=== PATIENT | female | born 1985 | race Caucasian/White ===

== ENCOUNTER 2024-07-15 19:04 | Emergency (ER) | payer BC ==
--- OUTSIDE RECORDS SUMMARY | 2024-07-15 19:09 | XMS REPORT | Continuity of Care Document ---
Author Name Unknown Address [address] [facility] [address] [place] [address] [facility] Address [address] [facility] [address] [place] [address] Care Team Providers Care Technician Automated Equipment Name Role Phone Lasha Lara Primary Care Physician [phone] Avtar Benavides Attending Clinician Unavailable YONG CARDENAS Attending Clinician Unavailable Yong York Attending Clinician [phone] Unknown, Attending Attending Clinician Unavailab le Doctor Unassigned, [place] Attending Clinician U navailable Payers Payer Name Policy Type Policy Number Effective Date Expirati on Date Source [facility] 6 [id number] 2024 00:00:00 [id number] 2018 00:00:00 [employer] 53 [id number] 2019 00:00:00 [facility] [id number] 2010 00:00:00 [employer] O [id number] 2019 00:00:00 Problems Condition Name Condition Details Condition Category Status Onset Date Resolution Date Last Treatment Date Treating Clinician Comments Source Type II or unspecifie d type diabetes mellitus with unspecifie d complicati on, uncontroll ed Type II or unspecifie d type diabetes mellitus with unspecifie d complicati on, uncontroll ed Disease Active 03-20 00:00: 00 [facility] [id number] BEREKET (generaliz ed anxiety disorder) Problem [facility] [id number] History of attention deficit hyperactiv ity disorder (ADHD) Problem [facility] Lumbar disc prolapse with radiculopa thy Lumbar disc herniation with radiculopa thy Problem [facility] [id number] Attention deficit hyperactiv ity disorder (ADHD), combined type Problem [facility] [id number] Anal lesion Problem [facility] [id number] Hypertensi on, unspecifie d type Problem [facility] [id number] Noncomplia nce with dietary restrictio n Problem [facility] [id number] Type 2 diabetes mellitus with hyperglyce piotr Problem [facility] Hyperlipid aemia Hyperlipem ia Problem [facility] [id number] rn long term care current use of insulin Problem [facility] [id number] History of stroke Problem [facility] [id number] History of hypothyroi dism Problem [facility] Essential hypertensi on Benign essential HTN Problem [facility] Diabetes mellitus without complicati on Diabetes DMII without complicati ons Problem [facility] Cerebral infarction Acute CVA (cerebrova scular accident) Problem [facility] [id number] Body mass index [BMI] 37.0-37.9, adult Problem [facility] Gastroesop hageal reflux disease GERD (gastroeso phageal reflux disease) Problem [facility] [id number] Morbid (severe) obesity due to excess calories Problem [facility] Depression Depression Problem [facility] [id number] Anemia, unspecifie d type Problem [facility] [id number] Abnormal laboratory test result Problem [facility] [id number] Thrombocyt osis Problem [facility] Diabetic retinopath y associated with type 2 diabetes mellitus Diabetic retinopath y without macular edema associated with type 2 diabetes mellitus, unspecifie d laterality , unspecifie d retinopath y severity Problem [facility] [id number] Non-season al allergic rhinitis, unspecifie d trigger Problem [facility] Allergies, Adverse Reactions, Alerts Allergy Name Allergy Type Status Severity Reaction(s) Onset Date Inactive Date Treating Clinician Comments Source NO KNOWN ALLERGIE S Drug Class Active [facility] Social History Social Habit Start Date Stop Date Quantity Comments Source History of Tobacco Use [facility] Exposure to SARS-CoV-2 (event) 2022-08-19 00:00:00 2022-08-29 09:04:00 Not sure [facility] Alcohol intake 2022-08-29 00:00:00 2022-08-29 00:00:00 [facility] Sex Assigned At 1985 00:00:00 1985 00:00:00 [facility] Smoking Status Start Date Stop Date Source Never Smoker [facility] Tobacco smoking consumption unknown [facility] Medications Ordered Medication Name Filled Medication Name Start Date Stop Date Current Medication? Ordering Clinician Indication Dosage Frequency Signature (SIG) Comments Components Source Pregabalin 75 MG Pregabalin 75 MG 2023-07 2-18 00:00: 00 No 1{capsu le} BID Pregabalin 75 MG Zoloft 50 MG Zoloft 50 MG 2023-07 1-19 00:00: 00 No 1{table t} QD Zoloft 50 MG Insulin Lispro (1 Unit Dial) 100 UNIT/ML Insulin Lispro (1 Unit Dial) 100 UNIT/ML 9-13 00:00: 00 No TID Insulin Lispro (1 Unit Dial) 100 UNIT/ML glipiZIDE ER 10 MG glipiZIDE ER 10 MG 7-30 00:00: 00 No 1{table t_with_ food} BID glipiZIDE ER 10 MG Vyvanse 40 MG Vyvanse 40 MG 2023- 6-05 00:00: 00 No 1{capsu le_in_t he_morn ing} QD Vyvanse 40 MG Fexofenadin e HCl 180 MG Fexofenadin e HCl 180 MG 2022-07 2- 00:00: 00 No QD Fexofenadi ne HCl 180 MG Cyclobenzap rine HCl 10 MG Cyclobenzap rine HCl 10 MG 6- 00:00: 00 No 1{table t_at_be dtime_a s_neede d} Cyclobenza elizabet HCl 10 MG Fluconazole 150 MG Fluconazole 150 MG - 00:00: 00 No 2{table ts} Fluconazol e 150 MG hydrOXYzine Pamoate 25 MG hydrOXYzine Pamoate 25 MG 2- 00:00: 00 No 1{capsu le_at_b edtime_ as_need ed} QD hydrOXYzin e Pamoate 25 MG ranitidine 150 mg tablet 08-29 09:16: 22 Yes 150mg Take 150 mg by mouth 2 (two) times daily. [facility] Cetirizine 10 mg capsule 08-29 09:16: 22 Yes Take by mouth. [facility] dicyclomine 10 mg capsule 08-29 09:16: 22 Yes 10mg Take 10 mg by mouth. [facility] doxycycline (PERIOSTAT) 20 mg tablet 08-29 09:16: 22 Yes 20mg Take 20 mg by mouth 2 (two) times daily. [facility] METHYL-B12/ L-MEFOLATE/ B6 PHOS (METANX ORAL) 08-29 09:16: 22 Yes Take by mouth. [facility] pramipexole (MIRAPEX) 0.125 mg tablet 08-29 09:16: 22 Yes .125mg Take 0.125 mg by mouth 3 (three) times daily. [facility] niacin 500 mg tablet 08-29 09:16: 22 Yes 500mg Take 500 mg by mouth daily with breakfast. [facility] amoxicillin 875 mg tablet 08-29 00:00: 00 09-09 05:59 :00 No [id number] 875mg Take 1 tablet by mouth in the morning and 1 tablet in the evening. Do all this for 10 days. [facility] MOUNJARO 2.5 mg/0.5 mL PnIj 2021-07 00:00: 00 Yes INJECT 2.5 MG UNDER THE SKIN ONCE WEEKLY. [facility] glipiZIDE XL 10 mg 24 hr tablet 2021-07 00:00: 00 Yes [facility] TRULICITY 1.5 mg/0.5 mL PnIj 2021-07 00:00: 00 Yes [facility] VYVANSE 40 mg capsule 2021-07 00:00: 00 Yes [facility] Pen [place] 31G X 5 MM [place] 31G X 5 MM 07-30 00:00: 00 No [place] 31G X 5 MM doxycycline (PERIOSTAT) 20 mg tablet 2017-07 10:12: 41 Yes 20mg Take 20 mg by mouth 2 (two) times daily. [facility] pramipexole (MIRAPEX) 0.125 mg tablet 2017-07 10:12: 41 Yes .125mg Take 0.125 mg by mouth 3 (three) times daily. [facility] Insulin Glargine (LANTUS SOLOSTAR) 100 unit/mL (3 mL) InPn 2011-07 00:00: 00 Yes [id number] 60U inject 60 Units under the skin daily. [facility] insulin aspart (NOVOLOG FLEXPEN) 100 unit/mL injection 2011-07 00:00: 00 Yes [id number] 20U inject 20 Units under the skin 3 (three) times daily before meals. [facility] niacin 500 mg tablet 03-20 14:56: 31 Yes 500mg Take 500 mg by mouth daily with breakfast. [facility] ACIDOPHILUS /PECTIN, CITRUS (ACIDOPHILU S PROBIOTIC ORAL) 03-20 14:56: 31 Yes Take by mouth. [facility] ascorbic acid (VITAMIN C) 500 mg tablet 03-20 14:56: 31 Yes 500mg Take 500 mg by mouth. [facility] ranitidine (ZANTAC) 150 mg tablet 03-20 14:56: 31 Yes 150mg Take 150 mg by mouth 2 (two) times daily. [facility] Cetirizine (ZYRTEC) 10 mg Cap 03-20 14:56: 31 Yes Take by mouth. [facility] METHYL-B12/ L-MEFOLATE/ B6 PHOS (METANX ORAL) 03-20 14:56: 30 Yes Take by mouth. [facility] enalapril (VASOTEC) 20 mg tablet 03-10 00:00: 00 Yes 20mg 20 mg daily. [facility] warfarin (COUMADIN) 7.5 mg tablet 02-28 00:00: 00 Yes [facility] gabapentin (NEURONTIN) 300 mg capsule 02-26 00:00: 00 Yes [facility] levothyroxi ne (SYNTHROID) 75 mcg tablet 02-15 00:00: 00 Yes 75ug 75 mcg BID. [facility] metFORMIN (GLUCOPHAGE ) 1,000 mg tablet 02-15 00:00: 00 Yes [facility] Cranberry 250 MG Cranberry 250 MG No Cranberry 250 MG Pravastatin Sodium 40 MG Pravastatin Sodium 40 MG No 1{table t} QD Pravastati n Sodium 40 MG Toujeo Max SoloStar 300 unit/mL Toujeo Max SoloStar 300 unit/mL No QD Toujeo Max SoloStar 300 unit/mL Omeprazole 40 MG Omeprazole 40 MG No 1{capsu le} QD Omeprazole 40 MG Dexilant 60 MG Dexilant 60 MG No 1{capsu le} QD Dexilant 60 MG Dicyclomine HCl 20 MG Dicyclomine HCl 20 MG No 1{table t} Dicyclomin e HCl 20 MG FreeStyle Mica 14 Day Sensor - FreeStyle Mica 14 Day Sensor - No FreeStyle Mica 14 Day Sensor - Aspirin 81 MG Aspirin 81 MG No 1{table t} QD Aspirin 81 MG Cetirizine HCl 10 MG Cetirizine HCl 10 MG No 2{table ts} QD Cetirizine HCl 10 MG Lisinopril 20 MG Lisinopril 20 MG No 1{table t} QD Lisinopril 20 MG Addyi 100 MG Addyi 100 MG No 1{table t_at_be dtime} QD Addyi 100 MG busPIRone HCl 15 MG busPIRone HCl 15 MG No BID busPIRone HCl 15 MG Mounjaro 15 MG/0.5ML Mounjaro 15 MG/0.5ML No Mounjaro 15 MG/0.5ML Immunizations Ordered Immunization Name Filled Immunization Name Date Status Comments Source Flucelvax - multidose vial Flucelvax - multidose vial 2021-08-27 14:40:00 Completed [facility] Boostrix (Tdap) Boostrix (Tdap) 2021-08-27 14:40:00 Completed [facility] Flucelvax - multidose vial Flucelvax - multidose vial 2021-08-27 14:40:00 Completed [facility] Boostrix (Tdap) Boostrix (Tdap) 2021-08-27 14:40:00 Completed [facility] Flucelvax - multidose vial Flucelvax - multidose vial 2021-08-27 14:40:00 Completed [facility] Boostrix (Tdap) Boostrix (Tdap) 2021-08-27 14:40:00 Completed [facility] Flucelvax - multidose vial Flucelvax - multidose vial 2021-08-27 14:40:00 Completed [facility] Boostrix (Tdap) Boostrix (Tdap) 2021-08-27 14:40:00 Completed [facility] Flucelvax - multidose vial Flucelvax - multidose vial 2021-08-27 14:40:00 Completed [facility] Boostrix (Tdap) Boostrix (Tdap) 2021-08-27 14:40:00 Completed [facility] Flucelvax - multidose vial Flucelvax - multidose vial 2021-08-27 14:40:00 Completed [facility] Boostrix (Tdap) Boostrix (Tdap) 2021-08-27 14:40:00 Completed [facility] Flucelvax - multidose vial Flucelvax - multidose vial 2021-08-27 14:40:00 Completed [facility] Boostrix (Tdap) Boostrix (Tdap) 2021-08-27 14:40:00 Completed [facility] Flucelvax - multidose vial Flucelvax - multidose vial 2021-08-27 14:40:00 Completed [facility] Boostrix (Tdap) Boostrix (Tdap) 2021-08-27 14:40:00 Completed [facility] Flucelvax - multidose vial Flucelvax - multidose vial 2021-08-27 14:40:00 Completed [facility] Boostrix (Tdap) Boostrix (Tdap) 2021-08-27 14:40:00 Completed [facility] SARS-COV-2 COVID-19 PFIZER VACCINE 2020-10-28 00:00:00 Completed [facility] SARS-COV-2 COVID-19 PFIZER VACCINE 2020-10-28 00:00:00 Completed [facility] SARS-COV-2 COVID-19 PFIZER VACCINE 2020-10-28 00:00:00 Completed [facility] SARS-COV-2 COVID-19 PFIZER VACCINE 2020-10-07 00:00:00 Completed [facility] SARS-COV-2 COVID-19 PFIZER VACCINE 2020-10-07 00:00:00 Completed [facility] SARS-COV-2 COVID-19 PFIZER VACCINE 2020-10-07 00:00:00 Completed [facility] Flucelvax - multidose vial Flucelvax - multidose vial Unknown Completed [facility] Boostrix (Tdap) Boostrix (Tdap) Unknown Completed [facility] Flucelvax - multidose vial Flucelvax - multidose vial Unknown Completed [facility] Boostrix (Tdap) Boostrix (Tdap) Unknown Completed [facility] Flucelvax - multidose vial Flucelvax - multidose vial Unknown Completed [facility] Boostrix (Tdap) Boostrix (Tdap) Unknown Completed [facility] Flucelvax - multidose vial Flucelvax - multidose vial Unknown Completed [facility] Boostrix (Tdap) Boostrix (Tdap) Unknown Completed [facility] Flucelvax - multidose vial Flucelvax - multidose vial Unknown Completed [facility] Boostrix (Tdap) Boostrix (Tdap) Unknown Completed [facility] Flucelvax - multidose vial Flucelvax - multidose vial Unknown Completed [facility] Boostrix (Tdap) Boostrix (Tdap) Unknown Completed [facility] Flucelvax - multidose vial Flucelvax - multidose vial Unknown Completed [facility] Boostrix (Tdap) Boostrix (Tdap) Unknown Completed [facility] Boostrix (Tdap) Boostrix (Tdap) Unknown Completed [facility] Flucelvax - multidose vial Flucelvax - multidose vial Unknown Completed [facility] Flucelvax - multidose vial Flucelvax - multidose vial Unknown Completed [facility] Boostrix (Tdap) Boostrix (Tdap) Unknown Completed [facility] Flucelvax - multidose vial Flucelvax - multidose vial Unknown Completed [facility] Boostrix (Tdap) Boostrix (Tdap) Unknown Completed [facility] Flucelvax - multidose vial Flucelvax - multidose vial Unknown Completed [facility] Boostrix (Tdap) Boostrix (Tdap) Unknown Completed [facility] Flucelvax - multidose vial Flucelvax - multidose vial Unknown Completed [facility] Boostrix (Tdap) Boostrix (Tdap) Unknown Completed [facility] Flucelvax - multidose vial Flucelvax - multidose vial Unknown Completed [facility] Boostrix (Tdap) Boostrix (Tdap) Unknown Completed [facility] Flucelvax - multidose vial Flucelvax - multidose vial Unknown Completed [facility] Boostrix (Tdap) Boostrix (Tdap) Unknown Completed [facility] Flucelvax - multidose vial Flucelvax - multidose vial Unknown Completed [facility] Boostrix (Tdap) Boostrix (Tdap) Unknown Completed [facility] Flucelvax - multidose vial Flucelvax - multidose vial Unknown Completed [facility] Boostrix (Tdap) Boostrix (Tdap) Unknown Completed [facility] Flucelvax (ccIIV4) - MDV - 0.5mL Flucelvax (ccIIV4) - MDV - 0.5mL Unknown Completed [facility] Boostrix (Tdap) Boostrix (Tdap) Unknown Completed [facility] Flucelvax (ccIIV4) - MDV - 0.5mL Flucelvax (ccIIV4) - MDV - 0.5mL Unknown Completed [facility] Boostrix (Tdap) Boostrix (Tdap) Unknown Completed [facility] Flucelvax (ccIIV4) - MDV - 0.5mL Flucelvax (ccIIV4) - MDV - 0.5mL Unknown Completed [facility] Boostrix (Tdap) Boostrix (Tdap) Unknown Completed [facility] Flucelvax (ccIIV4) - MDV - 0.5mL Flucelvax (ccIIV4) - MDV - 0.5mL Unknown Completed [facility] Boostrix (Tdap) Boostrix (Tdap) Unknown Completed [facility] Flucelvax (ccIIV4) - MDV - 0.5mL Flucelvax (ccIIV4) - MDV - 0.5mL Unknown Completed [facility] Boostrix (Tdap) Boostrix (Tdap) Unknown Completed [facility] Flucelvax (ccIIV4) - MDV - 0.5mL Flucelvax (ccIIV4) - MDV - 0.5mL Unknown Completed [facility] Boostrix (Tdap) Boostrix (Tdap) Unknown Completed [facility] Flucelvax (ccIIV4) - MDV - 0.5mL Flucelvax (ccIIV4) - MDV - 0.5mL Unknown Completed [facility] Boostrix (Tdap) Boostrix (Tdap) Unknown Completed [facility] Flucelvax (ccIIV4) - MDV - 0.5mL Flucelvax (ccIIV4) - MDV - 0.5mL Unknown Completed [facility] Boostrix (Tdap) Boostrix (Tdap) Unknown Completed [facility] Flucelvax (ccIIV4) - MDV - 0.5mL Flucelvax (ccIIV4) - MDV - 0.5mL Unknown Completed [facility] Boostrix (Tdap) Boostrix (Tdap) Unknown Completed [facility] Flucelvax (ccIIV4) - MDV - 0.5mL Flucelvax (ccIIV4) - MDV - 0.5mL Unknown Completed [facility] Boostrix (Tdap) Boostrix (Tdap) Unknown Completed [facility] Flucelvax (ccIIV4) - MDV - 0.5mL Flucelvax (ccIIV4) - MDV - 0.5mL Unknown Completed [facility] Boostrix (Tdap) Boostrix (Tdap) Unknown Completed [facility] Flucelvax (ccIIV4) - MDV - 0.5mL Flucelvax (ccIIV4) - MDV - 0.5mL Unknown Completed [facility] Boostrix (Tdap) Boostrix (Tdap) Unknown Completed [facility] Flucelvax (ccIIV4) - MDV - 0.5mL Flucelvax (ccIIV4) - MDV - 0.5mL Unknown Completed [facility] Boostrix (Tdap) Boostrix (Tdap) Unknown Completed [facility] Flucelvax (ccIIV4) - MDV - 0.5mL Flucelvax (ccIIV4) - MDV - 0.5mL Unknown Completed [facility] Boostrix (Tdap) Boostrix (Tdap) Unknown Completed [facility] Flucelvax (ccIIV4) - MDV - 0.5mL Flucelvax (ccIIV4) - MDV - 0.5mL Unknown Completed [facility] Boostrix (Tdap) Boostrix (Tdap) Unknown Completed [facility] Flucelvax (ccIIV4) - MDV - 0.5mL Flucelvax (ccIIV4) - MDV - 0.5mL Unknown Completed [facility] Boostrix (Tdap) Boostrix (Tdap) Unknown Completed [facility] Flucelvax (ccIIV4) - MDV - 0.5mL Flucelvax (ccIIV4) - MDV - 0.5mL Unknown Completed [facility] Boostrix (Tdap) Boostrix (Tdap) Unknown Completed [facility] Flucelvax (ccIIV4) - MDV - 0.5mL Flucelvax (ccIIV4) - MDV - 0.5mL Unknown Completed [facility] Boostrix (Tdap) Boostrix (Tdap) Unknown Completed [facility] Flucelvax (ccIIV4) - MDV - 0.5mL Flucelvax (ccIIV4) - MDV - 0.5mL Unknown Completed [facility] Boostrix (Tdap) Boostrix (Tdap) Unknown Completed [facility] Flucelvax (ccIIV4) - MDV - 0.5mL Flucelvax (ccIIV4) - MDV - 0.5mL Unknown Completed [facility] Boostrix (Tdap) Boostrix (Tdap) Unknown Completed [facility] Flucelvax (ccIIV4) - MDV - 0.5mL Flucelvax (ccIIV4) - MDV - 0.5mL Unknown Completed [facility] Boostrix (Tdap) Boostrix (Tdap) Unknown Completed [facility] Flucelvax (ccIIV4) - MDV - 0.5mL Flucelvax (ccIIV4) - MDV - 0.5mL Unknown Completed [facility] Boostrix (Tdap) Boostrix (Tdap) Unknown Completed [facility] Flucelvax (ccIIV4) - MDV - 0.5mL Flucelvax (ccIIV4) - MDV - 0.5mL Unknown Completed [facility] Boostrix (Tdap) Boostrix (Tdap) Unknown Completed [facility] Flucelvax (ccIIV4) - MDV - 0.5mL Flucelvax (ccIIV4) - MDV - 0.5mL Unknown Completed [facility] Boostrix (Tdap) Boostrix (Tdap) Unknown Completed [facility] Flucelvax (ccIIV4) - MDV - 0.5mL Flucelvax (ccIIV4) - MDV - 0.5mL Unknown Completed [facility] Boostrix (Tdap) Boostrix (Tdap) Unknown Completed [facility] Flucelvax (ccIIV4) - MDV - 0.5mL Flucelvax (ccIIV4) - MDV - 0.5mL Unknown Completed [facility] Boostrix (Tdap) Boostrix (Tdap) Unknown Completed [facility] Flucelvax - multidose vial Flucelvax - multidose vial Unknown Completed [facility] Boostrix (Tdap) Boostrix (Tdap) Unknown Completed [facility] Flucelvax - multidose vial Flucelvax - multidose vial Unknown Completed [facility] Boostrix (Tdap) Boostrix (Tdap) Unknown Completed [facility] Flucelvax - multidose vial Flucelvax - multidose vial Unknown Completed [facility] Boostrix (Tdap) Boostrix (Tdap) Unknown Completed [facility] Flucelvax - multidose vial Flucelvax - multidose vial Unknown Completed [facility] Boostrix (Tdap) Boostrix (Tdap) Unknown Completed [facility] Vital Signs Vital Name Observation Time Observation Value Comments S ource height 2024-07-07 08:00:00 66 [in_i] Commo n [facility] weight 2024-07-07 08:00:00 220 [lb_av] Comm on [facility] bmi 2024-07-07 08:00:00 35.51 kg/m2 Comm on [facility] height 2024-03-25 08:00:00 66 [in_i] Commo n [facility] weight 2024-03-25 08:00:00 220 [lb_av] Comm on [facility] bmi 2024-03-25 08:00:00 35.51 kg/m2 Comm on [facility] blood pressure systolic 2024-03-25 08:00:00 125 mm[Hg[facility] diastolic 2024-03-25 08:00:00 76 mm[Hg] [facility] height 2024-03-25 08:00:00 66 [in_i] Commo n [facility] weight 2024-03-25 08:00:00 220 [lb_av] Comm on [facility] bmi 2024-03-25 08:00:00 35.51 kg/m2 Comm on [facility] blood pressure systolic 2024-03-25 08:00:00 125 mm[Hg] Common [facility] blood pressure diastolic 2024-03-25 08:00:00 76 mm[Hg] [facility] height 2023-12-24 08:00:00 66 [in_i] Commo n [facility] weight 2023-12-24 08:00:00 220 [lb_av] Comm on [facility] temperature 2023-12-24 08:00:00 97 [degF] Comm on [facility] bmi 2023-12-24 08:00:00 35.51 kg/m2 Comm on [facility] blood pressure systolic 2023-12-24 08:00:00 123 mm[Hg] Common [facility] blood pressure diastolic 2023-12-24 08:00:00 76 mm[Hg] [facility] height 2023-09-24 08:00:00 66 [in_i] Commo n [facility] weight 2023-09-24 08:00:00 220 [lb_av] Comm on [facility] temperature 2023-09-24 08:00:00 98 [degF] Comm on [facility] bmi 2023-09-24 08:00:00 35.51 kg/m2 Comm on [facility] blood pressure systolic 2023-09-24 08:00:00 124 mm[Hg] [facility] blood pressure diastolic 2023-09-24 08:00:00 74 mm[Hg] [facility] height 2023-06-26 10:20:00 66 [in_i] Commo n [facility] weight 2023-06-26 10:20:00 222.6 [lb_av] Co mmon [facility] temperature 2023-06-26 10:20:00 97.3 [degF] Com mon [facility] bmi 2023-06-26 10:20:00 35.92 kg/m2 Comm on [facility] oximetry 2023-06-26 10:20:00 99 % Commo n [facility] blood pressure systolic 2023-06-26 10:20:00 132 mm[Hg] [facility] blood pressure diastolic 2023-06-26 10:20:00 80 mm[Hg] [facility] height 2023-03-26 11:40:00 66 [in_i] Commo n [facility] weight 2023-03-26 11:40:00 230 [lb_av] Comm on [facility] bmi 2023-03-26 11:40:00 37.12 kg/m2 Comm on [facility] blood pressure systolic 2023-03-26 11:40:00 131 mm[Hg] [facility] blood pressure diastolic 2023-03-26 11:40:00 78 mm[Hg] [facility] height 2022-12-24 13:30:00 66 [in_i] Commo n [facility] weight 2022-12-24 13:30:00 230 [lb_av] Comm on [facility] bmi 2022-12-24 13:30:00 37.12 kg/m2 Comm on [facility] blood pressure systolic 2022-12-24 13:30:00 132 mm[Hg] Common [facility] blood pressure diastolic 2022-12-24 13:30:00 75 mm[Hg] [facility] height 2022-11-08 16:30:00 66 [in_i] Commo n [facility] weight 2022-11-08 16:30:00 239.0 [lb_av] Co mmon [facility] temperature 2022-11-08 16:30:00 98.1 [degF] Com mon [facility] bmi 2022-11-08 16:30:00 38.57 kg/m2 Comm on [facility] oximetry 2022-11-08 16:30:00 100 % Commo n [facility] respiratory rate 2022-11-08 16:30:00 18 /min Common [facility] blood pressure systolic 2022-11-08 16:30:00 139 mm[Hg] [facility] blood pressure diastolic 2022-11-08 16:30:00 85 mm[Hg] Common [facility] [place] height 2022-10-29 16:20:00 66 [in_i] Commo n [facility] weight 2022-10-29 16:20:00 235 [lb_av] Comm on [facility] temperature 2022-10-29 16:20:00 98 [degF] Comm on [facility] bmi 2022-10-29 16:20:00 37.93 kg/m2 Comm on [facility] blood pressure systolic 2022-10-29 16:20:00 131 mm[Hg] [facility] blood pressure diastolic 2022-10-29 16:20:00 70 mm[Hg] [facility] height 2022-09-02 15:30:00 66 [in_i] Commo n [facility] weight 2022-09-02 15:30:00 233.0 [lb_av] Co mmon [facility] temperature 2022-09-02 15:30:00 97.2 [degF] Com mon [facility] bmi 2022-09-02 15:30:00 37.6 kg/m2 Commo n [facility] oximetry 2022-09-02 15:30:00 99 % Comm n [facility] respiratory rate 2022-09-02 15:30:00 18 /min [facility] blood pressure systolic 2022-09-02 15:30:00 134 mm[Hg] [facility] blood pressure diastolic 2022-09-02 15:30:00 72 mm[Hg] [facility] Systolic blood pressure 2022-08-29 15:16:00 132 mm[Hg] [facility] Diastolic blood pressure 2022-08-29 15:16:00 83 mm[Hg] [facility] Heart rate 2022-08-29 15:16:00 73 /min [facility] Body temperature 2022-08-29 15:16:00 36.72 Flor [facility] Respiratory rate 2022-08-29 15:16:00 18 /min [facility] Body weight 2022-08-29 15:16:00 107.049 kg [facility] BMI 2022-08-29 15:16:00 38.09 kg/m2 [facility] Oxygen saturation in Arterial blood by Pulse oximetry 2022-08-29 15:16:00 97 /min [facility] height 2022-06-04 08:00:00 66 [in_i] Commo n [facility] weight 2022-06-04 08:00:00 240 [lb_av] Comm on [facility] temperature 2022-06-04 08:00:00 98 [degF] Comm on [facility] bmi 2022-06-04 08:00:00 38.73 kg/m2 Comm on [facility] blood pressure systolic 2022-06-04 08:00:00 125 mm[Hg] Common [facility] blood pressure diastolic 2022-06-04 08:00:00 72 mm[Hg] [facility] height 2022-03-12 07:50:00 66 [in_i] Commo n [facility] weight 2022-03-12 07:50:00 240 [lb_av] Comm on [facility] temperature 2022-03-12 07:50:00 97.4 [degF] Com mon [facility] bmi 2022-03-12 07:50:00 38.73 kg/m2 Comm on [facility] blood pressure systolic 2022-03-12 07:50:00 120 mm[Hg] [facility] blood pressure diastolic 2022-03-12 07:50:00 76 mm[Hg] [facility] height 2022-01-01 09:20:00 66 [in_i] Commo n [facility] weight 2022-01-01 09:20:00 240 [lb_av] Comm on [facility] temperature 2022-01-01 09:20:00 98 [degF] Comm on [facility] bmi 2022-01-01 09:20:00 38.73 kg/m2 Comm on [facility] blood pressure systolic 2022-01-01 09:20:00 125 mm[Hg] Common [facility] blood pressure diastolic 2022-01-01 09:20:00 75 mm[Hg] [facility] height 2021-12-11 07:50:00 66 [in_i] Commo n [facility] weight 2021-12-11 07:50:00 240 [lb_av] Comm on [facility] temperature 2021-12-11 07:50:00 97.4 [degF] Com mon [facility] bmi 2021-12-11 07:50:00 38.73 kg/m2 Comm on [facility] blood pressure systolic 2021-12-11 07:50:00 128 mm[Hg] [facility] blood pressure diastolic 2021-12-11 07:50:00 76 mm[Hg] [facility] height 2021-11-09 07:50:00 66 [in_i] Commo n [facility] weight 2021-11-09 07:50:00 242 [lb_av] Comm on [facility] temperature 2021-11-09 07:50:00 98 [degF] Comm on [facility] bmi 2021-11-09 07:50:00 39.06 kg/m2 Comm on [facility] blood pressure systolic 2021-11-09 07:50:00 130 mm[Hg] [facility] blood pressure diastolic 2021-11-09 07:50:00 76 mm[Hg] [facility] height 2021-08-27 14:00:00 66 [in_i] Commo n [facility] weight 2021-08-27 14:00:00 240.7 [lb_av] Co mmon [facility] temperature 2021-08-27 14:00:00 98.1 [degF] Com mon [facility] bmi 2021-08-27 14:00:00 38.85 kg/m2 Comm on [facility] oximetry 2021-08-27 14:00:00 99 % Commo n [facility] respiratory rate 2021-08-27 14:00:00 18 /min Common [facility] blood pressure systolic 2021-08-27 14:00:00 132 mm[Hg] [facility] blood pressure diastolic 2021-08-27 14:00:00 74 mm[Hg] Common [facility] height 2021-07-03 10:40:00 66 [in_i] Commo n [facility] weight 2021-07-03 10:40:00 237 [lb_av] Comm on [facility] temperature 2021-07-03 10:40:00 98 [degF] Comm on [facility] bmi 2021-07-03 10:40:00 38.25 kg/m2 Comm on [facility] blood pressure systolic 2021-07-03 10:40:00 130 mm[Hg] [facility] blood pressure diastolic 2021-07-03 10:40:00 72 mm[Hg] Common [facility] height 2021-05-31 08:50:00 66 [in_i] Commo n [facility] weight 2021-05-31 08:50:00 238 [lb_av] Comm on [facility] temperature 2021-05-31 08:50:00 98 [degF] Comm on [facility] bmi 2021-05-31 08:50:00 38.41 kg/m2 Comm on [facility] blood pressure systolic 2021-05-31 08:50:00 131 mm[Hg] Common [facility] blood pressure diastolic 2021-05-31 08:50:00 70 mm[Hg] Common [facility] height 2021-05-07 09:00:00 66 [in_i] Commo n [facility] weight 2021-05-07 09:00:00 240 [lb_av] Comm on [facility] temperature 2021-05-07 09:00:00 97.3 [degF] Com mon [facility] bmi 2021-05-07 09:00:00 38.73 kg/m2 Comm on [facility] oximetry 2021-05-07 09:00:00 100 % Commo n [facility] respiratory rate 2021-05-07 09:00:00 18 /min [facility] blood pressure systolic 2021-05-07 09:00:00 130 mm[Hg] [facility] blood pressure diastolic 2021-05-07 09:00:00 70 mm[Hg] [facility] height 2021-04-02 08:10:00 66 [in_i] Commo n [facility] weight 2021-04-02 08:10:00 240 [lb_av] Comm on [facility] temperature 2021-04-02 08:10:00 98 [degF] Comm on [facility] bmi 2021-04-02 08:10:00 38.73 kg/m2 Comm on [facility] Procedures Procedure Date / Time Performed Performing Clinicia n Source POCT MOLECULAR STREP 2022-08-29 15:40:00 Unknown, Atte nding [facility] ASSIGNMENT OF BENEFITS 2022-08-29 15:06:18 Docto r Unassigned, [place] [facility] Encounters Start Date/Time End Date/Time Encounter Type Admission Type Attending Clinicians Care Facility Care Department Encounter ID Source 2024-07-12 16:37:00 Outpatient Benavides, [facility] STLC STLC [id number] [facility] 2024-03-23 14:21:00 Outpatient Benavides, [facility] STLC STLMLC [id number] [facility] 2024-03-17 14:53:00 Outpatient Benavides, [facility] ST[facility] STLMLC [id number] [facility] 2023-12-23 11:21:00 Outpatient Benavides, [facility] ST[facility] STLMLC [id number] [facility] 2023-12-22 11:31:00 Outpatient Benavides, [facility] ST[facility] STLMLC [id number] [facility] 2023-01-08 11:19:00 Outpatient Benavides, [place] STLMLC STLMLC [id number] [facility] 2022-10-30 11:16:01 Outpatient Benavides, [facility] STLMLC STLMLC [id number] [facility] 2022-09-02 15:28:01 Outpatient Benavides, [place] STLMLC STLMLC [id number] [facility] 2022-08-30 14:12:00 Outpatient Benavides, [place] STLMLC STLMLC [id number] [facility] 2022-05-31 10:56:01 Outpatient Benavides, [place] STLMLC STLMLC [id number] [facility] 2022-02-04 15:17:01 Outpatient Benavides, [place] STLMLC STLMLC [id number] [facility] 2022-01-11 13:06:01 Outpatient Benavides, [place] STLMLC STLMLC [id number] [facility] 2021-08-15 14:01:05 Outpatient Benavides, [place] STLMLC STLMLC [id number] [facility] 2021-08-15 13:40:45 Outpatient Benavides, [facility] STLMLC STLMLC [id number] [facility] 2021-08-15 13:22:11 Outpatient Benavides, [place] STLMLC STLMLC [id number] [facility] 2021-08-15 13:05:38 Outpatient Benavides, [place] STLMLC STLMLC [id number] [facility] 2021-08-15 12:42:53 Outpatient Benavides, [place] STLMLC STLMLC [id number] [facility] 2024-07-12 00:00:00 2024-07-12 00:00:00 ([facility]) STLMLC STLMLC [id number] [facility] 2024-07-07 00:00:00 2024-07-07 00:00:00 OFFICE VISIT ESTAB PT LEVEL 3 STLMLC STLMLC [id number] [facility] 2024-06-09 00:00:00 2024-06-09 00:00:00 (WEB) STLMLC STLMLC [id number] [facility] 2024-06-09 00:00:00 2024-06-09 00:00:00 (WEB) STLMLC STLMLC [id number] [facility] 2024-06-07 00:00:00 2024-06-07 00:00:00 (WEB) STLMLC STLMLC [id number] [facility] 2024-06-07 00:00:00 2024-06-07 00:00:00 (WEB) STLMLC STLMLC [id number] [facility] 2024-05-20 00:00:00 2024-05-20 00:00:00 (WEB) STLMLC STLMLC [id number] [facility] 2024-05-04 00:00:00 2024-05-04 00:00:00 (WEB) STLMLC STLMLC [id number] [facility] 2024-05-03 00:00:00 2024-05-03 00:00:00 (WEB) STLMLC STLMLC [id number] [facility] 2024-04-29 00:00:00 2024-04-29 00:00:00 (TEL) STLMLC STLMLC [id number] [facility] 2024-04-28 00:00:00 2024-04-28 00:00:00 (WEB) STLMLC STLMLC [id number] [facility] 2024-04-27 00:00:00 2024-04-27 00:00:00 (WEB) STLMLC STLMLC [id number] [facility] 2024-04-26 00:00:00 2024-04-26 00:00:00 (WEB) STLMLC STLMLC [id number] [facility] 2024-04-05 00:00:00 2024-04-05 00:00:00 (WEB) STLMLC STLMLC [id number] [facility] 2024-04-02 00:00:00 2024-04-02 00:00:00 (WEB) STLMLC STLMLC [id number] [facility] 2024-04-02 00:00:00 2024-04-02 00:00:00 (WEB) STLMLC STLMLC [id number] [facility] 2024-03-25 00:00:00 2024-03-25 00:00:00 OFFICE VISIT ESTAB PT LEVEL 3 STLMLC STLMLC [id number] [facility] 2024-03-25 00:00:00 2024-03-25 00:00:00 (WEB) STLMLC STLMLC [id number] [facility] 2024-03-21 00:00:00 2024-03-21 00:00:00 (WEB) STLMLC STLMLC [id number] [facility] 2024-03-11 00:00:00 2024-03-11 00:00:00 (WEB) STLMLC STLMLC [id number] [facility] 2024-02-17 00:00:00 2024-02-17 00:00:00 (WEB) STLMLC STLMLC [id number] [facility] 2024-02-17 00:00:00 2024-02-17 00:00:00 (WEB) STLMLC STLMLC [id number] [facility] 2024-02-17 00:00:00 2024-02-17 00:00:00 (WEB) STLMLC STLMLC [id number] [facility] 2024-02-13 00:00:00 2024-02-13 00:00:00 (WEB) STLMLC STLMLC [id number] [facility] 2024-02-13 00:00:00 2024-02-13 00:00:00 (WEB) STLMLC STLMLC [id number] [facility] 2024-01-06 00:00:00 2024-01-06 00:00:00 (TEL) STLMLC STLMLC [id number] [facility] 2023-12-25 00:00:00 2023-12-25 00:00:00 (TEL) STLMLC STLMLC [id number] [facility] 2023-12-25 00:00:00 2023-12-25 00:00:00 (TEL) STLMLC STLMLC [id number] [facility] 2023-12-24 00:00:00 2023-12-24 00:00:00 OFFICE VISIT ESTAB PT LEVEL 4 STLMLC STLMLC [id number] [facility] 2023-10-23 00:00:00 2023-10-23 00:00:00 (WEB) STLMLC STLMLC [id number] [facility] 2023-10-02 00:00:00 2023-10-02 00:00:00 (WEB) STLMLC STLMLC [id number] [facility] 2023-09-29 00:00:00 2023-09-29 00:00:00 (TEL) STLMLC STLMLC [id number] [facility] 2023-09-28 00:00:00 2023-09-28 00:00:00 (WEB) STLMLC STLMLC [id number] [facility] 2023-09-24 00:00:00 2023-09-24 00:00:00 OFFICE VISIT ESTAB PT LEVEL 4 STLMLC STLMLC [id number] [facility] 2023-09-18 00:00:00 2023-09-18 00:00:00 (WEB) STLMLC STLMLC [id number] [facility] 2023-09-18 00:00:00 2023-09-18 00:00:00 (TEL) STLMLC STLMLC [id number] [facility] 2023-08-21 00:00:00 2023-08-21 00:00:00 (WEB) STLMLC STLMLC [id number] [facility] 2023-08-12 00:00:00 2023-08-12 00:00:00 (WEB) STLMLC STLMLC [id number] [facility] 2023-06-26 00:00:00 2023-06-26 00:00:00 OFFICE VISIT ESTAB PT LEVEL 4 STLMLC STLMLC [id number] [facility] 2023-05-29 00:00:00 2023-05-29 00:00:00 (WEB) STLMLC STLMLC [id number] [facility] 2023-05-23 00:00:00 2023-05-23 00:00:00 (TEL) STLMLC STLMLC [id number] [facility] 2023-05-19 00:00:00 2023-05-19 00:00:00 (TEL) STLMLC STLMLC [id number] [facility] 2023-04-25 00:00:00 2023-04-25 00:00:00 (WEB) STLMLC STLMLC [id number] [facility] 2023-04-25 00:00:00 2023-04-25 00:00:00 (WEB) STLMLC STLMLC [id number] [facility] 2023-04-24 00:00:00 2023-04-24 00:00:00 (WEB) STLMLC STLMLC [id number] [facility] 2023-04-24 00:00:00 2023-04-24 00:00:00 (WEB) STLMLC STLMLC [id number] [facility] 2023-04-21 00:00:00 2023-04-21 00:00:00 (WEB) STLMLC STLMLC [id number] [facility] 2023-04-16 00:00:00 2023-04-16 00:00:00 (WEB) STLMLC STLMLC [id number] [facility] 2023-04-03 00:00:00 2023-04-03 00:00:00 (WEB) STLMLC STLMLC [id number] [facility] 2023-04-02 00:00:00 2023-04-02 00:00:00 (WEB) STLMLC STLMLC [id number] [facility] 2023-04-01 00:00:00 2023-04-01 00:00:00 (WEB) STLMLC STLMLC [id number] [facility] 2023-03-26 00:00:00 2023-03-26 00:00:00 OFFICE VISIT ESTAB PT LEVEL 4 STLMLC STLMLC [id number] [facility] 2023-03-05 00:00:00 2023-03-05 00:00:00 (WEB) STLMLC STLMLC [id number] [facility] 2023-02-24 00:00:00 2023-02-24 00:00:00 (WEB) STLMLC STLMLC [id number] [facility] 2023-01-27 00:00:00 2023-01-27 00:00:00 (WEB) STLMLC STLMLC [id number] [facility] 2023-01-08 00:00:00 2023-01-08 00:00:00 (TEL) STLMLC STLMLC [id number] [facility] 2023-01-08 00:00:00 2023-01-08 00:00:00 (WEB) STLMLC STLMLC [id number] [facility] 2023-01-06 00:00:00 2023-01-06 00:00:00 (WEB) STLMLC STLMLC [id number] [facility] 2022-12-24 00:00:00 2022-12-24 00:00:00 OFFICE VISIT ESTAB PT LEVEL 4 STLMLC STLMLC [id number] [facility] 2022-12-24 00:00:00 2022-12-24 00:00:00 (TEL) STLMLC STLMLC [id number] [facility] 2022-12-20 00:00:00 2022-12-20 00:00:00 (TEL) STLMLC STLMLC [id number] [facility] 2022-12-19 00:00:00 2022-12-19 00:00:00 (WEB) STLMLC STLMLC [id number] [facility] 2022-11-25 00:00:00 2022-11-25 00:00:00 (WEB) STLMLC STLMLC [id number] [facility] 2022-11-25 00:00:00 2022-11-25 00:00:00 (WEB) STLMLC STLMLC [id number] [facility] 2022-11-14 00:00:00 2022-11-14 00:00:00 (WEB) STLMLC STLMLC [id number] [facility] 2022-11-08 00:00:00 2022-11-08 00:00:00 OFFICE VISIT ESTAB PT LEVEL 3 STLMLC STLMLC [id number] [facility] 2022-11-07 00:00:00 2022-11-07 00:00:00 (WEB) STLMLC STLMLC [id number] [facility] 2022-10-29 00:00:00 2022-10-29 00:00:00 OFFICE VISIT ESTAB PT LEVEL 4 STLMLC STLMLC [id number] [facility] 2022-09-12 00:00:00 2022-09-12 00:00:00 (WEB) STLMLC STLMLC [id number] [facility] 2022-09-06 00:00:00 2022-09-06 00:00:00 (WEB) STLMLC STLMLC [id number] [facility] 2022-09-02 00:00:00 2022-09-02 00:00:00 PREV VISIT EST AGE 18-39 STLMLC STLMLC [id number] [facility] 2022-09-02 00:00:00 2022-09-02 00:00:00 (WEB) STLMLC STLMLC [id number] [facility] 2022-09-02 00:00:00 2022-09-02 00:00:00 (WEB) STLMLC STLMLC [id number] [facility] 2022-08-30 00:00:00 2022-08-30 00:00:00 (TEL) STLMLC STLMLC [id number] [facility] 2022-08-29 09:00:00 2022-08-29 10:00:05 Outpatient R YONG CARDENAS [facility] [id number] [facility] 2022-08-29 09:00:00 2022-08-29 10:00:05 Urgent Care Yong Cardenas Unknown, Attending [facility] [id number] [facility] 2022-08-29 00:00:00 2022-08-29 00:00:00 Orders Only Doctor Unassigned, [place] [facility] 1..840.114 350.1.13.10 [id number] [id number] [facility] 2022-08-29 00:00:00 2022-08-29 00:00:00 Letter (Out) Yong Cardenas [facility] [id number] [id number] [id number] [id number] [facility] 2022-06-07 00:00:00 2022-06-07 00:00:00 (TEL) STLMLC STLMLC [id number] [facility] 2022-06-04 00:00:00 2022-06-04 00:00:00 OFFICE VISIT ESTAB PT LEVEL 4 STLMLC STLMLC [id number] [facility] 2022-03-15 00:00:00 2022-03-15 00:00:00 (TEL) STLMLC STLMLC [id number] [facility] 2022-03-12 00:00:00 2022-03-12 00:00:00 OFFICE VISIT ESTAB PT LEVEL 4 STLMLC STLMLC [id number] [facility] 2022-03-06 00:00:00 2022-03-06 00:00:00 (TEL) STLMLC STLMLC [id number] [facility] 2022-02-13 00:00:00 2022-02-13 00:00:00 (TEL) STLMLC STLMLC [id number] [facility] 2022-02-04 00:00:00 2022-02-04 00:00:00 (TEL) STLMLC STLMLC [id number] [facility] 2022-02-04 00:00:00 2022-02-04 00:00:00 (TEL) STLMLC STLMLC [id number] [facility] 2022-01-01 00:00:00 2022-01-01 00:00:00 OFFICE VISIT ESTAB PT LEVEL 4 STLMLC STLMLC [id number] [facility] 2021-12-12 00:00:00 2021-12-12 00:00:00 (TEL) STLMLC STLMLC [id number] [facility] 2021-12-11 00:00:00 2021-12-11 00:00:00 OFFICE VISIT ESTAB PT LEVEL 3 STLMLC STLMLC [id number] [facility] 2021-12-03 00:00:00 2021-12-03 00:00:00 (TEL) STLMLC STLMLC [id number] [facility] 2021-11-12 00:00:00 2021-11-12 00:00:00 (TEL) STLMLC STLMLC [id number] [facility] 2021-11-09 00:00:00 2021-11-09 00:00:00 OFFICE VISIT ESTAB PT LEVEL 4 STLMLC STLMLC [id number] [facility] 2021-08-29 00:00:00 2021-08-29 00:00:00 (TEL) STLMLC STLMLC [id number] [facility] 2021-08-27 00:00:00 2021-08-27 00:00:00 PREV VISIT EST AGE 18-39 STLMLC STLMLC [id number] [facility] 2021-07-03 00:00:00 2021-07-03 00:00:00 OFFICE VISIT ESTAB PT LEVEL 3 STLMLC STLMLC [id number] [facility] 2021-05-31 00:00:00 2021-05-31 00:00:00 OFFICE VISIT EST PT LEVEL 3 STLMLC STLMLC [id number] [facility] 2021-05-14 00:00:00 2021-05-14 00:00:00 (TEL) STLMLC STLMLC [id number] [facility] 2021-05-07 00:00:00 2021-05-07 00:00:00 OFFICE VISIT ESTAB PT LEVEL 4 STLMLC STLMLC [id number] [facility] 2021-04-02 00:00:00 2021-04-02 00:00:00 OFFICE VISIT ESTAB PT LEVEL 3 STLMLC STLMLC [id number] [facility] 2021-03-12 00:00:00 2021-03-12 00:00:00 Outpatient STLMLC STLMLC [id number] [facility] 2021-01-29 00:00:00 2021-01-29 00:00:00 Outpatient STLMLC STLMLC [id number] [facility] 2021-01-29 00:00:00 2021-01-29 00:00:00 Outpatient STLMLC STLMLC [id number] [facility] 2020-12-07 00:00:00 2020-12-07 00:00:00 Outpatient STLMLC STLMLC [id number] [facility] 2020-10-28 14:55:00 2020-10-28 14:55:00 Outpatient [facility] [id number] [facility] 2020-10-09 00:00:00 2020-10-09 00:00:00 Outpatient STLMLC STLC [id number] [facility] 2020-10-07 14:45:00 2020-10-07 14:45:00 Outpatient [facility] [id number] [facility] 2012-07-24 00:00:00 2012-07-24 00:00:00 Outpatient [facility] [id number] [facility] 2012-05-29 00:00:00 2012-05-29 00:00:00 Outpatient [facility] [id number] [facility] 2012-03-20 00:00:00 2012-03-20 15:29:48 Outpatient [facility] [id number] [facility] Results Test Description Test Time Test Comments Results Result Co mments Source COMPREHENSIVE METABOLIC [id number] 00:00:00* Test Item Value Reference Range Interpretation Comme nts NUCLEATED RBCS (test code = 85764-4) 0.0 /100 WBC'S See_Comment [Automated message] The system which generated this result transmitted reference range: 0.0 /100 WBC'S. The reference range was not used to interpret this result as normal/abnormal. ABSOLUTE EOSINOPHILS (test code = 96428-6) 0.09 K/UL See_Comment [Automated message] The system which generated this result transmitted reference range: 0.00-0.50 K/UL. The reference range was not used to interpret this result as normal/abnormal. ABSOLUTE LYMPHOCYTES (test code = 96838-8) 2.31 K/UL See_Comment [Automated message] The system which generated this result transmitted reference range: 1.00-4.00 K/UL. The reference range was not used to interpret this result as normal/abnormal. ABSOLUTE MONOCYTES (test code = 55586-6) 0.41 K/UL See_Comment [Automated message] The system which generated this result transmitted reference range: 0.20-1.00 K/UL. The reference range was not used to interpret this result as normal/abnormal. ABSOLUTE NEUTROPHILS (test code = 62531-7) 5.39 K/UL See_Comment [Automated message] The system which generated this result transmitted reference range: 1.50-7.50 K/UL. The reference range was not used to interpret this result as normal/abnormal. BASOPHILS (test code = 50008-2) 0.1 % EOSINOPHILS (test code = 70302-9) 1.1 % HEMATOCRIT (test code = 46355-1) 34.6 % See_Comment [Automated messa ge] The system which generated this result transmitted reference range: 34.0-45.0 %. The reference range was not used to interpret this result as normal/abnormal. HEMOGLOBIN (test code = 718-7) 11.3 G/DL See_Comment L [Automated messa ge] The system which generated this result transmitted reference range: 11.5-15.5 G/DL. The reference range was not used to interpret this result as normal/abnormal. LYMPHOCYTES (test code = 12304-7) 28.0 % MCH (test code = 54702-4) 27.3 PG See_Comment [Automated messa ge] The system which generated this result transmitted reference range: 25.0-33.0 PG. The reference range was not used to interpret this result as normal/abnormal. MCHC (test code = 55416-1) 32.7 G/DL See_Comment [Automated messa ge] The system which generated this result transmitted reference range: 31.0-36.0 G/DL. The reference range was not used to interpret this result as normal/abnormal. MCV (test code = 27350-2) 83.6 fL See_Comment [Automated messa ge] The system which generated this result transmitted reference range: 80.0-99.0 fL. The reference range was not used to interpret this result as normal/abnormal. MONOCYTES (test code = 53746-8) 5.0 % NEUTROPHILS (test code = 89540-3) 65.3 % PLATELET COUNT (test code = 08215-3) 362 K/UL See_Comment [Automated messa ge] The system which generated this result transmitted reference range: 130-400 K/UL. The reference range was not used to interpret this result as normal/abnormal. RBC (test code = 99738-4) 4.14 M/UL See_Comment [Automated messa ge] The system which generated this result transmitted reference range: 3.80-5.40 M/UL. The reference range was not used to interpret this result as normal/abnormal. RDW (test code = 43400-9) 12.3 % See_Comment [Automated messa ge] The system which generated this result transmitted reference range: 11.5-15.0 %. The reference range was not used to interpret this result as normal/abnormal. WBC (test code = 11269-0) 8.3 K/UL See_Comment [Automated messa ge] The system which generated this result transmitted reference range: 3.5-11.0 K/UL. The reference range was not used to interpret this result as normal/abnormal. HEMOGLOBIN A1c (test code = 4548-4) 10.0 % See_Comment H [Automated messa ge] The system which generated this result transmitted reference range: 4.2-5.6 %. The reference range was not used to interpret this result as normal/abnormal. CALC LDL CHOL (test code = 05555-4) 79 MG/DL See_Comment [Automated messa ge] The system which generated this result transmitted reference range: <100 MG/DL. The reference range was not used to interpret this result as normal/abnormal. CHOLESTEROL (test code = 2093-3) 133 MG/DL See_Comment [Automated messa ge] The system which generated this result transmitted reference range: <200 MG/DL. The reference range was not used to interpret this result as normal/abnormal. HDL CHOLESTEROL (test code = 2085-9) 37 MG/DL See_Comment L [Automated messa ge] The system which generated this result transmitted reference range: >39 MG/DL. The reference range was not used to interpret this result as normal/abnormal. RISK RATIO LDL/HDL (test code = 87393-6) 2.14 RATIO See_Comment [Automated message] The system which generated this result transmitted reference range: <3.22 RATIO. The reference range was not used to interpret this result as normal/abnormal. TRIGLYCERIDES (test code = 2571-8) 90 MG/DL See_Comment [Automated messa ge] The system which generated this result transmitted reference range: <150 MG/DL. The reference range was not used to interpret this result as normal/abnormal. ALBUMIN (test code = 1751-7) 3.5 G/DL See_Comment [Automated messa ge] The system which generated this result transmitted reference range: 3.5-5.2 G/DL. The reference range was not used to interpret this result as normal/abnormal. ALKALINE PHOSPHATASE (test code = 6768-6) 80 U/L See_Comment [Automated message] The system which generated this result transmitted reference range: 40-112 U/L. The reference range was not used to interpret this result as normal/abnormal. BILIRUBIN, TOTAL (test code = 1975-2) 0.2 MG/DL See_Comment [Automated messa ge] The system which generated this result transmitted reference range: <=1.2 MG/DL. The reference range was not used to interpret this result as normal/abnormal. BUN (test code = 3094-0) 10 MG/DL See_Comment [Automated messa ge] The system which generated this result transmitted reference range: 6-20 MG/DL. The reference range was not used to interpret this result as normal/abnormal. CALCIUM (test code = 27357-4) 9.6 MG/DL See_Comment [Automated messa ge] The system which generated this result transmitted reference range: 8.5-10.5 MG/DL. The reference range was not used to interpret this result as normal/abnormal. CALC A/G RATIO (test code = 1759-0) 1.1 RATIO See_Comment [Automated messa ge] The system which generated this result transmitted reference range: 1.0-2.6 RATIO. The reference range was not used to interpret this result as normal/abnormal. CALC BUN/CREAT (test code = 3097-3) 12 RATIO See_Comment [Automated messa ge] The system which generated this result transmitted reference range: 6-28 RATIO. The reference range was not used to interpret this result as normal/abnormal. CALC GLOBULIN (test code = 84457-2) 3.1 G/DL See_Comment [Automated messa ge] The system which generated this result transmitted reference range: 1.9-3.7 G/DL. The reference range was not used to interpret this result as normal/abnormal. CARBON DIOXIDE (test code = 1963-8) 26 MEQ/L See_Comment [Automated messa ge] The system which generated this result transmitted reference range: 19-31 MEQ/L. The reference range was not used to interpret this result as normal/abnormal. CHLORIDE (test code = 2075-0) 105 MEQ/L See_Comment [Automated messa ge] The system which generated this result transmitted reference range: 95-107 MEQ/L. The reference range was not used to interpret this result as normal/abnormal. CREATININE (test code = 2160-0) 0.81 MG/DL See_Comment [Automated messa ge] The system which generated this result transmitted reference range: 0.60-1.30 MG/DL. The reference range was not used to interpret this result as normal/abnormal. eGFR (2020 CKD-EPI) (test code = 97697-5) 95 ML/MIN/1.73 See_Comment [Automated message] The system which generated this result transmitted reference range: >60 ML/MIN/1.73. The reference range was not used to interpret this result as normal/abnormal. GLUCOSE (test code = 1558-6) 136 MG/DL See_Comment H [Automated messa ge] The system which generated this result transmitted reference range: 70-99 MG/DL. The reference range was not used to interpret this result as normal/abnormal. POTASSIUM (test code = 2823-3) 4.4 MEQ/L See_Comment [Automated messa ge] The system which generated this result transmitted reference range: 3.5-5.4 MEQ/L. The reference range was not used to interpret this result as normal/abnormal. PROTEIN, TOTAL (test code = 2885-2) 6.6 G/DL See_Comment [Automated messa ge] The system which generated this result transmitted reference range: 6.1-8.3 G/DL. The reference range was not used to interpret this result as normal/abnormal. AST (test code = 1920-8) 13 U/L See_Comment [Automated messa ge] The system which generated this result transmitted reference range: 9-40 U/L. The reference range was not used to interpret this result as normal/abnormal. ALT (test code = 1742-6) 14 U/L See_Comment [Automated messa ge] The system which generated this result transmitted reference range: 5-40 U/L. The reference range was not used to interpret this result as normal/abnormal. SODIUM (test code = 2951-2) 146 MEQ/L See_Comment [Automated messa ge] The system which generated this result transmitted reference range: 133-146 MEQ/L. The reference range was not used to interpret this result as normal/abnormal. CBC W/AUTO [id number] 00:00:00* Test Item Value Reference Range Interpretation Comme nts NUCLEATED RBCS (test code = 78159-0) 0.0 /100 WBC'S See_Comment [Automated messa ge] The system which generated this result transmitted reference range: 0.0 /100 WBC'S. The reference range was not used to interpret this result as normal/abnormal. ABSOLUTE EOSINOPHILS (test code = 07128-1) 0.11 K/UL See_Comment [Automated messa ge] The system which generated this result transmitted reference range: 0.00-0.50 K/UL. The reference range was not used to interpret this result as normal/abnormal. ABSOLUTE LYMPHOCYTES (test code = 22229-0) 1.89 K/UL See_Comment [Automated messa ge] The system which generated this result transmitted reference range: 1.00-4.00 K/UL. The reference range was not used to interpret this result as normal/abnormal. ABSOLUTE MONOCYTES (test code = 72415-0) 0.28 K/UL See_Comment [Automated messa ge] The system which generated this result transmitted reference range: 0.20-1.00 K/UL. The reference range was not used to interpret this result as normal/abnormal. ABSOLUTE NEUTROPHILS (test code = 69460-3) 3.39 K/UL See_Comment [Automated messa ge] The system which generated this result transmitted reference range: 1.50-7.50 K/UL. The reference range was not used to interpret this result as normal/abnormal. BASOPHILS (test code = 11584-9) 0.2 % EOSINOPHILS (test code = 31361-6) 1.9 % HEMATOCRIT (test code = 53845-7) 39.7 % See_Comment [Automated messa ge] The system which generated this result transmitted reference range: 34.0-45.0 %. The reference range was not used to interpret this result as normal/abnormal. HEMOGLOBIN (test code = 718-7) 12.5 G/DL See_Comment [Automated messa ge] The system which generated this result transmitted reference range: 11.5-15.5 G/DL. The reference range was not used to interpret this result as normal/abnormal. LYMPHOCYTES (test code = 94630-9) 33.2 % MCH (test code = 09048-9) 26.3 PG See_Comment [Automated messa ge] The system which generated this result transmitted reference range: 25.0-33.0 PG. The reference range was not used to interpret this result as normal/abnormal. MCHC (test code = 98262-9) 31.5 G/DL See_Comment [Automated messa ge] The system which generated this result transmitted reference range: 31.0-36.0 G/DL. The reference range was not used to interpret this result as normal/abnormal. MCV (test code = 23871-4) 83.6 fL See_Comment [Automated messa ge] The system which generated this result transmitted reference range: 80.0-99.0 fL. The reference range was not used to interpret this result as normal/abnormal. MONOCYTES (test code = 31079-1) 4.9 % NEUTROPHILS (test code = 04001-6) 59.4 % PLATELET COUNT (test code = 61145-3) 356 K/UL See_Comment [Automated messa ge] The system which generated this result transmitted reference range: 130-400 K/UL. The reference range was not used to interpret this result as normal/abnormal. RBC (test code = 42985-5) 4.75 M/UL See_Comment [Automated messa ge] The system which generated this result transmitted reference range: 3.80-5.40 M/UL. The reference range was not used to interpret this result as normal/abnormal. RDW (test code = 73460-5) 13.1 % See_Comment [Automated messa ge] The system which generated this result transmitted reference range: 11.5-15.0 %. The reference range was not used to interpret this result as normal/abnormal. WBC (test code = 11430-4) 5.7 K/UL See_Comment [Automated messa ge] The system which generated this result transmitted reference range: 3.5-11.0 K/UL. The reference range was not used to interpret this result as normal/abnormal. CBC W/AUTO [id number] 00:00:00* Test Item Value Reference Range Interpretation Comme nts NUCLEATED RBCS (test code = 65817-7) 0.0 /100 WBC'S See_Comment [Automated messa ge] The system which generated this result transmitted reference range: 0.0 /100 WBC'S. The reference range was not used to interpret this result as normal/abnormal. ABSOLUTE EOSINOPHILS (test code = 07113-5) 0.26 K/UL See_Comment [Automated messa ge] The system which generated this result transmitted reference range: 0.00-0.50 K/UL. The reference range was not used to interpret this result as normal/abnormal. ABSOLUTE LYMPHOCYTES (test code = 30252-7) 2.71 K/UL See_Comment [Automated messa ge] The system which generated this result transmitted reference range: 1.00-4.00 K/UL. The reference range was not used to interpret this result as normal/abnormal. ABSOLUTE MONOCYTES (test code = 82161-6) 0.48 K/UL See_Comment [Automated messa ge] The system which generated this result transmitted reference range: 0.20-1.00 K/UL. The reference range was not used to interpret this result as normal/abnormal. ABSOLUTE NEUTROPHILS (test code = 50578-9) 4.21 K/UL See_Comment [Automated messa ge] The system which generated this result transmitted reference range: 1.50-7.50 K/UL. The reference range was not used to interpret this result as normal/abnormal. BASOPHILS (test code = 29773-6) 0.3 % EOSINOPHILS (test code = 88154-9) 3.4 % HEMATOCRIT (test code = 21392-7) 35.2 % See_Comment [Automated messa ge] The system which generated this result transmitted reference range: 34.0-45.0 %. The reference range was not used to interpret this result as normal/abnormal. HEMOGLOBIN (test code = 718-7) 11.3 G/DL See_Comment L [Automated messa ge] The system which generated this result transmitted reference range: 11.5-15.5 G/DL. The reference range was not used to interpret this result as normal/abnormal. LYMPHOCYTES (test code = 91206-3) 35.2 % MCH (test code = 96820-2) 26.4 PG See_Comment [Automated messa ge] The system which generated this result transmitted reference range: 25.0-33.0 PG. The reference range was not used to interpret this result as normal/abnormal. MCHC (test code = 44510-6) 32.1 G/DL See_Comment [Automated messa ge] The system which generated this result transmitted reference range: 31.0-36.0 G/DL. The reference range was not used to interpret this result as normal/abnormal. MCV (test code = 46105-9) 82.2 fL See_Comment [Automated messa ge] The system which generated this result transmitted reference range: 80.0-99.0 fL. The reference range was not used to interpret this result as normal/abnormal. MONOCYTES (test code = 81638-8) 6.2 % NEUTROPHILS (test code = 83367-6) 54.6 % PLATELET COUNT (test code = 97523-9) 405 K/UL See_Comment H [Automated messa ge] The system which generated this result transmitted reference range: 130-400 K/UL. The reference range was not used to interpret this result as normal/abnormal. RBC (test code = 42884-9) 4.28 M/UL See_Comment [Automated messa ge] The system which generated this result transmitted reference range: 3.80-5.40 M/UL. The reference range was not used to interpret this result as normal/abnormal. RDW (test code = 88651-6) 12.6 % See_Comment [Automated messa ge] The system which generated this result transmitted reference range: 11.5-15.0 %. The reference range was not used to interpret this result as normal/abnormal. WBC (test code = 87781-3) 7.7 K/UL See_Comment [Automated messa ge] The system which generated this result transmitted reference range: 3.5-11.0 K/UL. The reference range was not used to interpret this result as normal/abnormal. CBC W/AUTO [id number] 00:00:00* Test Item Value Reference Range Interpretation Comme nts NUCLEATED RBCS (test code = 61847-6) 0.0 /100 WBC'S See_Comment [Automated messa ge] The system which generated this result transmitted reference range: 0.0 /100 WBC'S. The reference range was not used to interpret this result as normal/abnormal. ABSOLUTE EOSINOPHILS (test code = 21747-1) 0.15 K/UL See_Comment [Automated messa ge] The system which generated this result transmitted reference range: 0.00-0.50 K/UL. The reference range was not used to interpret this result as normal/abnormal. ABSOLUTE LYMPHOCYTES (test code = 10865-4) 2.36 K/UL See_Comment [Automated messa ge] The system which generated this result transmitted reference range: 1.00-4.00 K/UL. The reference range was not used to interpret this result as normal/abnormal. ABSOLUTE MONOCYTES (test code = 31935-1) 0.46 K/UL See_Comment [Automated messa ge] The system which generated this result transmitted reference range: 0.20-1.00 K/UL. The reference range was not used to interpret this result as normal/abnormal. ABSOLUTE NEUTROPHILS (test code = 65751-0) 6.20 K/UL See_Comment [Automated messa ge] The system which generated this result transmitted reference range: 1.50-7.50 K/UL. The reference range was not used to interpret this result as normal/abnormal. BASOPHILS (test code = 30141-3) 0.2 % EOSINOPHILS (test code = 08644-9) 1.6 % HEMATOCRIT (test code = 69629-8) 36.5 % See_Comment [Automated messa ge] The system which generated this result transmitted reference range: 34.0-45.0 %. The reference range was not used to interpret this result as normal/abnormal. HEMOGLOBIN (test code = 718-7) 11.9 G/DL See_Comment [Automated messa ge] The system which generated this result transmitted reference range: 11.5-15.5 G/DL. The reference range was not used to interpret this result as normal/abnormal. LYMPHOCYTES (test code = 55828-2) 25.6 % MCH (test code = 42289-7) 26.9 PG See_Comment [Automated messa ge] The system which generated this result transmitted reference range: 25.0-33.0 PG. The reference range was not used to interpret this result as normal/abnormal. MCHC (test code = 95826-9) 32.6 G/DL See_Comment [Automated messa ge] The system which generated this result transmitted reference range: 31.0-36.0 G/DL. The reference range was not used to interpret this result as normal/abnormal. MCV (test code = 33097-9) 82.4 fL See_Comment [Automated messa ge] The system which generated this result transmitted reference range: 80.0-99.0 fL. The reference range was not used to interpret this result as normal/abnormal. MONOCYTES (test code = 86945-7) 5.0 % NEUTROPHILS (test code = 06630-7) 67.3 % PLATELET COUNT (test code = 17181-3) 408 K/UL See_Comment H [Automated messa ge] The system which generated this result transmitted reference range: 130-400 K/UL. The reference range was not used to interpret this result as normal/abnormal. RBC (test code = 70638-1) 4.43 M/UL See_Comment [Automated messa ge] The system which generated this result transmitted reference range: 3.80-5.40 M/UL. The reference range was not used to interpret this result as normal/abnormal. RDW (test code = 94673-3) 12.6 % See_Comment [Automated messa ge] The system which generated this result transmitted reference range: 11.5-15.0 %. The reference range was not used to interpret this result as normal/abnormal. WBC (test code = 08348-0) 9.2 K/UL See_Comment [Automated messa ge] The system which generated this result transmitted reference range: 3.5-11.0 K/UL. The reference range was not used to interpret this result as normal/abnormal. POCT MOLECULAR [id number] 15:44:08* Test Item Value Reference Range Interpretation Comme nts POCT Molecular Strep (test c ode = 06915-5) Positive Negative A Lab Interpretation (test cod e = 03274-9) [facility] [id number] 00:00:00* Test Item Value Reference Range Interpretation Comme [facility] Cholesterol, Total (test code = 2093-3) 223 mg/dL See_Comment H [Automated message] The system which generated this result transmitted reference range: 100-199 mg/dL. The reference range was not used to interpret this result as normal/abnormal. Triglycerides (test code = 2571-8) 112 mg/dL See_Comment [Automated [employer]] The system which generated this result transmitted reference range: 0-149 mg/dL. The reference range was not used to interpret this result as normal/abnormal. HDL Cholesterol (test code = 2085-9) 42 mg/dL See_Comment [Automated [employer]] The system which generated this result transmitted reference range: >39 mg/dL. The reference range was not used to interpret this result as normal/abnormal. HEMOGLOBIN [id number] 00:00:00* Test Item Value Reference Range Interpretation Comme [facility] A1C (test code = 4548-4) 9.2
[2024-07-15] MEDS ORDERED: NA CHLORIDE 0.9% 1,000 ML ONE (20:43)
[2024-07-15 20:46] LABS: Absolute Eosinophils 0.2 K/uL (0-0.5); Absolute Lymphocytes (CBC) 2.4 K/uL (0.7-4.9); Absolute Monocytes 0.6 K/uL (0.1-1.3); Absolute Neutrophil 5.3 K/uL (1.8-8.0); Basophils % 0.3 % (0-1.3); Eosinophils % 2.5 % (0-4.4); Hematocrit 35.3 % (36.0-45.0); Hemoglobin 11.2 g/dL (12.0-15.0); Lymphocytes % 28.5 % (15.3-44.8); MCH 23.6 pg (27.0-35.0); MCHC 31.8 g/dL (32.0-36.0); MCV 74.1 fL (80-100); MPV 8.1 fL (7.6-11.3); Monocytes % 6.9 % (3.3-12.3); Neutrophils % 61.8 % (41.7-73.7); Platelets 385 thou/uL (152-406); RBC Red Blood Cell Count 4.76 M/uL (3.86-4.86); Red Cell Distribution Width 15.6 % (12.1-15.2)
[2024-07-15 21:04] LABS: ALT/SGPT 17 U/L (13-56); Albumin/Globulin Ratio 0.7 (1.1-1.8); Alkaline Phosphatase 87 U/L (45-117); Anion Gap 7.8 mEq/L (5.0-15.0); BUN Blood Urea Nitrogen 22 mg/dL (7-18); Bicarbonate 28 mEq/L (21-32); Globulin 4.2 g/dL (2.3-3.5); Glomerular Filtration Rate 92 ml/min (=/>90); Glucose Level 202 mg/dL (74-106); Potassium 3.8 mEq/L (3.5-5.1); Protein, Total 7.2 g/dL (6.4-8.2); Sodium Level 138 mEq/L (136-145)
[2024-07-15 21:05] LABS: AST/SGOT < 10 U/L (15-37); Bilirubin Total < 0.2 mg/dL (0.2-1.0)
--- NOTE | 2024-07-15 22:29 | ER ---
Nurse's Notes [facility] Name: Lauren Summers Age: 38 yrs Sex: Female : 1985 Arrival Date: 07/15/2024 Time: 19:04 Bed 7 Private MD: Diagnosis: Low vision, left eye, normal vision right eye;Acute vision blurring Left eye Presentation: 07/15 19:26 Chief complaint: Patient states: Was at work today and started seeing floaties out of cm10 left eye and now "it feels like I am looking through muddy water." Pt also reports headache. pt denies any eye pain. Coronavirus screen: Client denies travel out of the [place] in the last 14 days. Ebola Screen: Patient denies travel to an Ebola-affected area in the 21 days before illness onset. No symptoms or risks identified at this time. Initial Sepsis Screen: Does the patient meet any 2 criteria? No. Patient's initial sepsis screen is negative. Does the patient have a suspected source of infection? No. Patient's initial sepsis screen is negative. Risk Assessment: Do you want to hurt yourself or someone else? Patient reports no desire to harm self or others. Onset of symptoms was July 15, 2024. 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 - Infectious Disease History:: Denies. - Social history:: Smoking status: Patient denies any tobacco usage or history of. - Family history:: not pertinent. Screenin:36 [facility] ED Fall Risk Assessment (Adult) History of falling in the last 3 months, ay including since admission No falls in past 3 months (0 pts) Confusion or Disorientation No (0 pts) Intoxicated or Sedated No (0 pts) Impaired Gait No (0 pts) Mobility Assist Device Used No (0 pt) Altered Elimination No (0 pt) Score/Fall Risk Level 0 - 2 = Low Risk Oriented to surroundings, Maintained a safe environment, Educated pt \\T\\ family on fall prevention, incl call for assistance when getting out of bed. 19:36 Abuse screen: Denies threats or abuse. Nutritional screening: No deficits noted. ay Tuberculosis screening: No symptoms or risk factors identified. Assessment: 19:36 General: Appears in no apparent distress. comfortable, Behavior is calm, cooperative. ay Pain: Complains of pain in head and neck Pain currently is 2 out of 10 on a pain scale. Pain: Quality of pain is described as. Neuro: Level of Consciousness is awake, alert, obeys commands, Oriented to person, place, time, situation, Speech is normal. Cardiovascular: Capillary refill < 3 seconds. Respiratory: Airway is patent Respiratory effort is even, unlabored, Respiratory pattern is regular, symmetrical. GI: Bowel sounds present X 4 quads. : No signs and/or symptoms were reported regarding the genitourinary system. EENT: Reports blurred vision in iris of right eye seeing muddy water. Denies pain in eyes. Derm: No signs and/or symptoms reported regarding the dermatologic system. Musculoskeletal: No signs and/or symptoms reported regarding the musculoskeletal system. 21:48 Reassessment: Patient appears in no apparent distress at this time. Patient is alert, ay oriented x 3, equal unlabored respirations, skin warm/dry/pink. 22:35 Reassessment: Patient appears in no apparent distress at this time. Patient and/or bm8 family updated on plan of care and expected duration. Pain level reassessed. Patient is alert, oriented x 3, equal unlabored respirations, skin warm/dry/pink. Patient denies pain at this time. Patient states feeling better. Vital Signs: 19:26 BP 194 / 59; Pulse 66; Resp 16; Temp 97.6; Pulse Ox 99% on R/A; Weight 104.33 kg; cm10 Height 5 ft. 6 in. ; Pain 3/10; 19:42 BP 130 / 59; Pulse 62; Resp 18; Temp 98.7; Pulse Ox 100% on R/A; ay 21:49 BP 164 / 77; Pulse 77; Resp 20; Pulse Ox 100% on R/A; ay 22:35 BP 144 / 52; Pulse 67; Resp 17; Temp 98.7; Pulse Ox 100% ; Pain 0/10; bm8 19:26 Body Mass Index 37.12 (104.33 kg, 167.64 cm) cm10 19:26 Pain Scale: Adult cm10 22:35 Pain Scale: Adult bm8 Michele Coma Score: 19:36 Eye Response: spontaneous(4). Motor Response: obeys commands(6). Verbal Response: ay oriented(5). Total: 15. 22:35 Eye Response: spontaneous(4). Motor Response: obeys commands(6). Verbal Response: bm8 oriented(5). Total: 15. 07/16 20:22 Eye Response: spontaneous(4). Motor Response: obeys commands(6). Verbal Response: sp4 oriented(5). Total: 15. ED Course: 07/15 19:07 Patient arrived in ED. mr 19:27 Triage completed. cm10 19:28 Arm band placed on right wrist. Patient placed in an exam room, on a stretcher. cm10 19:36 Francisco Renee, RN is Primary Nurse. ay 19:36 Patient has correct armband on for positive identification. Bed in low position. Call ay light in reach. Side rails up X 1. Adult w/ patient. Provided Education on: plan of care. 20:09 Jose Lobo MD is Attending Physician. sp4 20:40 CBC with Diff Sent. ay 20:40 CRP Sent. ay 20:40 CMP Sent. ay 20:40 Inserted saline lock: 20 gauge in left antecubital area, using aseptic technique. Blood bm8 collected. Flushed with 10 mL NS. 22:27 Goyo Han MD is Referral Physician. sp4 22:35 No provider procedures requiring assistance completed. IV discontinued, intact, bm8 bleeding controlled, No redness/swelling at site. Pressure dressing applied. Administered Medications: 20:47 Drug: NS 0.9% IV 1000 ml IV at 1 bolus Per protocol; to be given as a bolus over 60 ay minutes Route: IV; Rate: 1 bolus; Site: left antecubital; 22:36 Follow up: Response: No adverse reaction; IV Status: Completed infusion; IV Intake: bm8 1000ml Medication: 19:36 VIS not applicable for this client. ay Intake: 22:36 IV: 1000ml; Total: 1000ml. bm8 Outcome: :28 Discharge ordered by . sp4 22:35 Discharged to home ambulatory, bm8 22:35 Condition: stable 22:35 Discharge instructions given to patient, family, Instructed on discharge instructions, follow up and referral plans. no drinking with medication, no driving heavy equipment, safety practices, Demonstrated understanding of instructions, follow-up care, medications, 22:37 Patient left the ED. bm8 Signatures: Janessa Carl, Reg Reg mr Lashell, MD MUSA Garcia sp4 Steph Zaragoza RN RN cm10 Ronaldo Obando RN RN bm8 Francisco Renee RN RN ay Corrections: (The following items were deleted from the chart) 22:36 22:36 IV Status: Completed infusion; IV Intake: 1000ml bm8 bm8
--- NOTE | 2024-07-15 22:29 | EDPHYS ---
Physician Documentation [facility] Name: Lauren Summers Age: 38 yrs Sex: Female : 1985 Arrival Date: 07/15/2024 Time: 19:04 Bed 7 Private MD: ED Physician Jose Lobo HPI: 07/15 20:09 This 38 yrs old Female presents to ER via Ambulatory with complaints of Eye sp4 Problem. 07/16 20:22 38-year-old female presents with complaint of left eye blurry vision. Patient states sp4 she had examination by naphthalene operator helper at [facility] prior to arrival but decided to come in to have a repeat eye evaluation. Reports history of poorly controlled diabetes. Patient denied vision loss but reported blurry vision in the left eye. . 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 - Infectious Disease History:: Denies. - Social history:: Smoking status: Patient denies any tobacco usage or history of. - Family history:: not pertinent. ROS: 07/16 20:22 Constitutional: Negative for fever, chills, and weight loss, Eyes: Negative for injury, sp4 pain, redness, and discharge, Positive for left eye blurry vision ENT: Negative for injury, pain, and discharge, Neck: Negative for injury, pain, and swelling, Cardiovascular: Negative for chest pain, palpitations, and edema, Respiratory: Negative for shortness of breath, cough, wheezing, and pleuritic chest pain, Abdomen/GI: Negative for abdominal pain, nausea, vomiting, diarrhea, and constipation, All other systems are negative, Exam: 20:22 Constitutional: This is a well developed, well nourished patient who is awake, alert, sp4 and in no acute distress. Head/Face: Normocephalic, atraumatic. Eyes: Pupils equal round and reactive to light, extra-ocular motions intact. Lids and lashes normal. Conjunctiva and sclera are not injected. Cornea within normal limits. Periorbital areas with no swelling, redness, or edema. Bilateral visual rodas are intact. Funduscopic exam not successful. Not able to visualize retina well on bilateral fundoscopy. The optic disks were not well-visualized. Pupils are equal reactive with direct and consensual light application. ENT: Nares patent. No nasal discharge, no septal abnormalities noted. Tympanic membranes are normal and external auditory canals are clear. Oropharynx with no redness, swelling, or masses, exudates, or evidence of obstruction, uvula midline. Mucous membranes moist. Neck: Trachea midline, no thyromegaly or masses palpated, and no cervical lymphadenopathy. Supple, full range of motion without nuchal rigidity, or vertebral point tenderness. Chest/axilla: Normal chest wall appearance and motion. Nontender with no deformity. No lesions are appreciated. Cardiovascular: Regular rate and rhythm with a normal S1 and S2. No gallops, murmurs, or rubs. Normal PMI, no JVD. No pulse deficits. Respiratory: Lungs have equal breath sounds bilaterally, clear to auscultation and percussion. No rales, rhonchi or wheezes noted. No increased work of breathing, no retractions or nasal flaring. Abdomen/GI: Soft, with normal bowel sounds. No distension or tympany. No guarding or rebound. No evidence of tenderness throughout. Back: No spinal tenderness. No costovertebral tenderness. Skin: Warm, dry with normal turgor. Normal color with no rashes, no lesions, and no evidence of cellulitis. MS/ Extremity: Pulses equal, no cyanosis. Neurovascular intact. Full, normal range of motion. Neuro: Awake and alert, GCS 15, oriented to person, place, time, and situation. Cranial nerves II-XII grossly intact. Motor strength 5/5 in all extremities. Sensory grossly intact. Psych: Awake, alert, with orientation to person, place and time. Behavior, mood, and affect are within normal limits Vital Signs: 07/15 19:26 BP 194 / 59; Pulse 66; Resp 16; Temp 97.6; Pulse Ox 99% on R/A; Weight 104.33 kg; cm10 Height 5 ft. 6 in. ; Pain 3/10; 19:42 BP 130 / 59; Pulse 62; Resp 18; Temp 98.7; Pulse Ox 100% on R/A; ay 21:49 BP 164 / 77; Pulse 77; Resp 20; Pulse Ox 100% on R/A; ay 22:35 BP 144 / 52; Pulse 67; Resp 17; Temp 98.7; Pulse Ox 100% ; Pain 0/10; bm8 19:26 Body Mass Index 37.12 (104.33 kg, 167.64 cm) cm10 19:26 Pain Scale: Adult cm10 22:35 Pain Scale: Adult bm8 Michele Coma Score: 19:36 Eye Response: spontaneous(4). Motor Response: obeys commands(6). Verbal Response: ay oriented(5). Total: 15. 22:35 Eye Response: spontaneous(4). Motor Response: obeys commands(6). Verbal Response: bm8 oriented(5). Total: 15. 07/16 20:22 Eye Response: spontaneous(4). Motor Response: obeys commands(6). Verbal Response: sp4 oriented(5). Total: 15. MDM: 07/15 20:10 Medical Screening Exam initiated sp4 07/16 20:31 Differential diagnosis: Corneal abrasion of Corneal ulcer of Foreign body in Acute sp4 iritis of Acute glaucoma in. Data reviewed: vital signs, nurses notes, lab test result(s). ED course: Vision is blurry but there is no vision loss, no sign of emergent eye condition such as painless vision loss or acute angle-closure glaucoma. Pupils are reactive. Visual rodas are intact. Blood sugars are under control today. Patient stable for discharge advised to follow-up with rn endocrinology for dilated eye exam. 07/15 20:21 Order name: CMP; Complete Time: 22:23 sp4 07/15 20:24 Order name: CRP; Complete Time: 22:23 sp4 07/15 20:25 Order name: CBC with Diff; Complete Time: 22:23 sp4 07/15 20:24 Order name: Saline Lock; Complete Time: 20:40 sp4 Administered Medications: 07/15 20:47 Drug: NS 0.9% IV 1000 ml IV at 1 bolus Per protocol; to be given as a bolus over 60 ay minutes Route: IV; Rate: 1 bolus; Site: left antecubital; 22:36 Follow up: Response: No adverse reaction; IV Status: Completed infusion; IV Intake: bm8 1000ml Disposition Summary: 07/15/24 22:28 Discharge Ordered Problem: new sp4 Symptoms: have improved sp4 Condition: Stable sp4 Diagnosis - Low vision, left eye, normal vision right eye sp4 - Acute vision blurring Left eye sp4 Followup: sp4 - With: Goyo Han MD - When: 7 - 10 days - Reason: Recheck today's complaints Discharge Instructions: - Discharge Summary Sheet sp4 - Blurred Vision, Adult sp4 Forms: - Patient Portal Instructions sp4 Signatures: Dispatcher [employer] EDMS Jose Lobo MD MD sp4 Steph Zaragoza RN RN cm10 Francisco Renee RN RN ay Ronaldo Obando RN bm8 Corrections: (The following items were deleted from the chart) 20:22 20:22 COMPREHENSIVE METABOLIC PANEL+[id number].LAB.BRZ ordered. EDWY EDWY
[2024-07-15 22:43] VITALS: TEMP 98.7; O2SAT 100
[2024-07-15 22:47] VITALS: BP 144/52
== END 2024-07-15 22:37 | disposition home or self-care (01) ==
LOC: ER 19:04
DX: H54.52A1 Low vision left eye category 1, normal vision right eye (principal); E11.9 Type 2 diabetes mellitus without complications; I10 Essential (primary) hypertension
CPT/HCPCS: 96361; 85025; 36415; 80053; 86140; 96360; 99284; J7030